=== PATIENT | male | born 1995 | race Asian ===

== ENCOUNTER 2017-08-21 16:07 | Emergency (ER) | payer OTHER, SELFPAY ==
[2017-08-21] MEDS ORDERED: Adacel (T-DAP) 0.5 ML VIAL ONE (16:51)
[2017-08-21] MEDS ORDERED: Bupivacaine 0.5% 10 ML VIAL ONE (16:54)
[2017-08-21] MEDS ORDERED: Bacitracin Zinc 1 Packet ONE (18:01)
== END 2017-08-21 18:07 | disposition home or self-care (01) ==
LOC: SCSER 16:07
DX: S61.217A Laceration without foreign body of left little finger without damage to nail, initial encounter (principal); W26.0XXA Contact with knife, initial encounter
CPT/HCPCS: 12002; 90471; 90715; J3490